=== PATIENT | male | born 1980 | race Two or more races ===

== ENCOUNTER 2017-02-21 21:11 | Emergency (ER) | payer MEDICAID, OTHER ==
[~2017-02-21] VITALS: Ht 170.2 cm; Wt 99.8 kg
[2017-02-21 21:27] LABS: Urine Bilirubin Negative (Negative); Urine Blood 2+ /uL (Negative); Urine Color Yellow (Yellow); Urine Glucose Normal (Normal); Urine Ketone Negative (Negative); Urine Nitrite Negative (Negative); Urine RBC 15 /hpf (0 - 3); Urine Sperm PRESENT /hpf (None Seen); Urine Urobilinogen Normal (Negative); Urine pH 5.5 (5.0-8.0)
[2017-02-21 22:07] LABS: Basophils # (auto) 0 uL; Basophils % (auto) 0.3 % (0.0-2.0); CONDITION Y; Eosinophils # (auto) 0.5 uL; Eosinophils % (auto) 3.9 % (0.0-7.0); Hematocrit 43.6 % (41.0-53.0); Hemoglobin 14.9 g/dL (13.5-17.5); Lymphocytes # (auto) 2.9 uL; Lymphocytes % (auto) 23.3 % (10.0-50.0); Mean Corpuscular Hemoglobin 30.2 pg (28.0-32.0); Mean Corpuscular Hgb Conc. 34.2 g/dL (32.0-36.0); Mean Corpuscular Volume 88.3 fL (80.0-100.0); Mean Platelet Volume 7.7 fL (7.4-10.4); Monocytes % (auto) 7.9 % (0.0-12.0); Neutrophils # (auto) 8.1 uL; Neutrophils % (auto) 64.6 % (37.0-80.0); Platelet Count (auto) 303 10^3/uL (140-450); Red Cell Distribution Width 13.4 % (11.6-16.0); White Blood Cell 12.6 10^3/uL (4.4-10.8)
[2017-02-21 22:28] LABS: Albumin 3.9 g/dL (3.4-5.0); Calcium 8.8 mg/dL (8.5-10.1); Magnesium 2.5 mg/dL (1.6-2.6); Potassium 4.2 mmol/L (3.5-5.1)
[2017-02-21 22:30] LABS: BUN/Creatinine Ratio 14.7
[2017-02-21 22:33] LABS: Bilirubin, Total 0.3 mg/dL (0.2-1.0)
[2017-02-22] MEDS ORDERED: IOHEXOL 300 MG/ML 100ML BOTTLE IJ ONE (03:07)
[2017-02-22] MEDS ORDERED: MORPHINE SULFATE 4 MG/ML SYRG IV ONE (03:15)
[2017-02-22] MEDS ORDERED: ONDANSETRON HCL 4 MG/2 ML VIAL IV ONE (03:15)
[2017-02-22] MEDS ORDERED: SODIUM CHLORIDE 0.9% 1,000 ML IV ONE (03:15)
[2017-02-22 05:15] VITALS: BP 140/83
== END 2017-02-22 05:28 | disposition home or self-care (01) ==
LOC: ER 21:11
DX: N20.0 Calculus of kidney (principal); K59.00 Constipation, unspecified
CPT/HCPCS: 36415; 74177; 80053; 81001; 83690; 83735; 85025; 96361; 96374; 96375; 99285; J2270; J2405; J7030; Q9967

== ENCOUNTER 2020-09-05 23:05 | Emergency (ER) | payer MEDICAID ==
[~2020-09-05] VITALS: Ht 170.2 cm; Wt 108.9 kg
[2020-09-05 23:07] VITALS: BP 166/111
[2020-09-06] MEDS ORDERED: HYDROcodone-ACET 5/325MG TAB PO ONE (00:15)
[2020-09-06 01:08] LABS: Urine Bacteria NONE SEEN /hpf (None Seen); Urine Blood Negative /uL (Negative); Urine Specific Gravity 1.019 (1.001-1.035); Urine WBC <1 /hpf (0 - 3)
[2020-09-06] MEDS ORDERED: KETOROLAC TROMETH 30 MG/ML 1ML VIAL IV ONE (01:15)
[2020-09-06] MEDS ORDERED: ONDA-144 PO (02:24)
[2020-09-06] MEDS ORDERED: IBUP600T27 PO (02:24)
== END 2020-09-06 02:32 | disposition home or self-care (01) ==
LOC: ER 23:07
DX: N13.2 Hydronephrosis with renal and ureteral calculous obstruction (principal); Z87.442 Personal history of urinary calculi; Z79.899 Other long term (current) drug therapy
CPT/HCPCS: 74176; 81001; 96374; 99284; J1885

== ENCOUNTER 2021-07-15 14:55 | Emergency (ER) | payer SELFPAY ==
[~2021-07-15] VITALS: Ht 172.7 cm; Wt 104.3 kg
[~2021-07-15 14:55] MED LIST: IBUP600T27 PO; ONDA-144 PO
[2021-07-15] MEDS ORDERED: IBU600T PO (16:43)
[2021-07-15 17:15] VITALS: BP 153/97
== END 2021-07-15 17:17 | disposition home or self-care (01) ==
LOC: ER 14:55
DX: S52.532A Colles' fracture of left radius, initial encounter for closed fracture (principal); W19.XXXA Unspecified fall, initial encounter; Y93.89 Activity, other specified; Y92.89 Other specified places as the place of occurrence of the external cause; Y99.8 Other external cause status
CPT/HCPCS: 29125; 73090; 73110

== ENCOUNTER 2021-12-05 10:23 | Emergency (ER) | payer MEDICAID ==
[~2021-12-05] VITALS: Ht 167.6 cm; Wt 99.8 kg
[~2021-12-05 10:23] MED LIST changes: +IBU600T PO
[2021-12-05 11:17] VITALS: BP 136/88
[2021-12-05] MEDS ORDERED: AZIT500T66 PO (12:55)
[2021-12-05] MEDS ORDERED: ACE650RS PR (12:55)
== END 2021-12-05 13:12 | disposition home or self-care (01) ==
LOC: ER 10:23
DX: U07.1 COVID-19 (principal); J03.90 Acute tonsillitis, unspecified; Z79.1 Long term (current) use of non-steroidal anti-inflammatories (NSAID); Z79.899 Other long term (current) drug therapy
CPT/HCPCS: 36415